=== PATIENT | female | born 1965 | race Caucasian/White ===

== ENCOUNTER 2016-12-12 11:23 | Emergency (ER) | payer MEDICAID ==
[~2016-12-12] VITALS: Ht 175.3 cm; Wt 92.0 kg
[2016-12-12 11:34] VITALS: Ht 175.3 cm; Wt 92.0 kg
[2016-12-12] MEDS ORDERED: ALBUTEROL 0.083% (NEB) 2.5 MG/3 ML AMP HHN STA (12:55)
[2016-12-12] MEDS ORDERED: IPRATROPIUM (NEB) 0.5 MG/2.5 ML AMP HHN ONE (13:00)
[2016-12-12] MEDS ORDERED: DEXAMETHASONE 10 MG/ML 1 ML INJ PO ONE (13:00)
--- NOTE | 2016-12-12 13:34 | RADRPT ---
PROCEDURE: XR Chest. CLINICAL INDICATION: Cough TECHNIQUE: Single portable view of the chest was obtained COMPARISON: No priors for comparison FINDINGS: The trachea is midline. The cardiac silhouette and pulmonary vascularity are within normal limits. T he lungs are clear. The costophrenic angles are sharp. IMPRESSION: 1. No evidence of acute cardiopulmonary disease. RPTAT: AARR Physician Marcela Date Time Electronically viewed and signed by Richard Ortiz Physician on 12/12/2016 13:34 CAROLA/
[2016-12-12] MEDS ORDERED: PROM5SYR2 PO (13:40)
[2016-12-12] MEDS ORDERED: PRED20TA PO (13:40)
[2016-12-12] MEDS ORDERED: ALBU8.5H3 INH (13:41)
[2016-12-12 14:03] VITALS: BP 128/71; PULSE 81; RESP 18; TEMP 98.9
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
== END 2016-12-12 14:08 | disposition home or self-care (01) ==
LOC: FTE 11:23
DX: R05 Cough (principal); I10 Essential (primary) hypertension; F17.210 Nicotine dependence, cigarettes, uncomplicated
CPT/HCPCS: 71010; 94664; J1100; Z7502; Z7610

== ENCOUNTER 2016-12-27 11:29 | Emergency (ER) | payer MEDICAID, OTHER ==
[~2016-12-27] VITALS: Wt 91.0 kg
[~2016-12-27 11:29] MED LIST: ALBU8.5H3 INH; PRED20TA PO; PROM5SYR2 PO
[2016-12-27] MEDS ORDERED: traMADol 50 MG TAB PO ONE (14:00)
[2016-12-27] MEDS ORDERED: TRAM50TA2 PO (14:30)
[2016-12-27 14:57] VITALS: BP 114/70; PULSE 72; RESP 18; TEMP 98.2
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
== END 2016-12-27 15:01 | disposition home or self-care (01) ==
LOC: FTE 11:29
DX: M54.5 Low back pain (principal); I10 Essential (primary) hypertension; F17.210 Nicotine dependence, cigarettes, uncomplicated
CPT/HCPCS: Z7502; Z7610; 99283